=== PATIENT | male | born 1965 | race Caucasian/White ===

== ENCOUNTER → 2017-02-27 | Outpatient (CLI) | payer OTHER ==
[~2017-02-27] MED LIST: NONE PER PT
== END ==
LOC: STAR 14:39
PROVIDERS: ATTEND Thoracic Surgery (Cardiothoracic Vascular Surgery)
DX: Z02.9 Encounter for administrative examinations, unspecified (principal)

== ENCOUNTER 2017-03-04 11:48 | Day surgery (SDC) | payer OTHER ==
[~2017-03-04] VITALS: Ht 180.3 cm; Wt 88.5 kg
[~2017-03-04 11:48] MED LIST changes: +BUPIVACAINE/PF 0.5% ONE
[2017-03-04] MEDS ORDERED: LIDOCAINE 1%, 2ML ONE (12:14)
[2017-03-04] MEDS ORDERED: LIDOCAINE 1%, 2ML SQ PRN (12:30)
[2017-03-04] MEDS ORDERED: LACTATED RINGERS 1,000 ML IV SCH ×2 (13:00→15:37)
[2017-03-04] MEDS ORDERED: FENTANYL PF 100 MCG/2ML ONE ×2 (14:57→14:58)
[2017-03-04] MEDS ORDERED: MIDAZOLAM 1 MG/ML, 2ML ONE (14:57)
[2017-03-04] MEDS ORDERED: DEXAMETHASONE 4 MG/ML, 1ML ONE ×2 (15:06)
[2017-03-04] MEDS ORDERED: SUCCINYLCHOLINE 20 MG/ML, 10ML ONE (15:06)
[2017-03-04] MEDS ORDERED: CEFAZOLIN 1,000 MG ONE ×2 (15:06)
[2017-03-04] MEDS ORDERED: PROPOFOL 10 MG/ML, 20ML ONE (15:06)
[2017-03-04] MEDS ORDERED: ONDANSETRON 2MG/ML, 2ML ONE ×2 (15:06)
[2017-03-04] MEDS ORDERED: ROCURONIUM 10MG/ML,5ML ONE (15:06)
[2017-03-04] MEDS ORDERED: BUPIVACAINE/PF-EPI 0.5% 1:200K IM ONE (15:11)
[2017-03-04] MEDS ORDERED: KETOROLAC 30 MG/1 ML ONE (15:13)
[2017-03-04] MEDS ORDERED: NEOSTIGMINE 1 MG/ML, 10ML ONE (15:18)
[2017-03-04] MEDS ORDERED: GLYCOPYRROLATE 0.2MG/1ML, 5ML ONE (15:18)
[2017-03-04] MEDS ORDERED: NALOXONE 0.4 MG/ML, 1ML ONE (15:33)
[2017-03-04] MEDS ORDERED: morphine SULFATE 10 MG/ML, 1ML IVPush PRN (16:00)
[2017-03-04] MEDS ORDERED: HYDROcodone/APAP 5/325 TABLET PO PRN (16:00)
[2017-03-04] MEDS ORDERED: ONDANSETRON 2MG/ML, 2ML IVPush PRN ×2 (16:00→16:30)
[2017-03-04] MEDS ORDERED: OXYcodone 5 MG/5 ML ORAL.SOL UDC ONE (16:10)
[2017-03-04] MEDS ORDERED: ACETAMINOPHEN 650 MG/20.3 ML UDC ONE (16:10)
[2017-03-04] MEDS ORDERED: ALBUTEROL SULFATE 2.5 MG/3 ML NPPB PRN (16:30)
[2017-03-04] MEDS ORDERED: OXYcodone 5 MG/5 ML ORAL.SOL UDC PO PRN (16:30)
[2017-03-04] MEDS ORDERED: MEPERIDINE/PF 25MG/0.5ML IVPush PRN (16:30)
[2017-03-04] MEDS ORDERED: FENTANYL PF 100 MCG/2ML IV PRN (16:30)
[2017-03-04] MEDS ORDERED: HYDROmorphone 1 MG/ML, 1ML IV PRN (16:30)
[2017-03-04] MEDS ORDERED: hydrALAzine 20 MG/ML, 1ML IV PRN (16:30)
[2017-03-04] MEDS ORDERED: PROMETHAZINE 25 MG/ML, 1ML IV PRN (16:30)
[2017-03-04] MEDS ORDERED: ACETAMINOPHEN 325 MG TABLET PO PRN (16:30)
[2017-03-04] MEDS ORDERED: LABETALOL 5MG/ML, 20ML IV PRN (16:30)
[2017-03-04] MEDS ORDERED: MIDAZOLAM 1 MG/ML, 2ML IV PRN (16:30)
== END 2017-03-04 17:30 ==
LOC: EDBD → OUT 11:48
PROVIDERS: ATTEND Thoracic Surgery (Cardiothoracic Vascular Surgery)
DX: K42.0 Umbilical hernia with obstruction, without gangrene (principal); Z87.891 Personal history of nicotine dependence
CPT/HCPCS: 49587; C1781; J0330; J0690; J1100; J1885; J2250; J2310; J2405; J2704; J2710; J3010; J3490; J7120